=== PATIENT | female | born 1960 | race Caucasian/White ===

== ENCOUNTER → 2018-01-17 | Outpatient (CLI) | payer BC ==
--- NOTE | 2018-01-17 09:55 | WOMENS IMAGING REPORT ---
EXAM DESCRIPTION: BILAT SCREENING MAMMO W/CAD COMPLETED DATE/TIME: 01/17/2018 9:09 am REASON FOR STUDY: SCREENING MAMMO Z12.31 ENCNTR SCREEN MAMMOGRAM FOR MALIGNANT NEOPLASM OF LISA COMPARISON: 2009 TECHNIQUE: Standard craniocaudal and mediolateral oblique views of each breast recorded using digita l acquisition. LIMITATIONS: None. FINDINGS: No masses, calcifications or architectural distortion. No areas of suspicion. Read with the assistance of CAD. .[facility] - R2 Cenova Version 1.3 .[facility] Imaging - R2 Cenova Version 1.3 .[facility] - R2 Cenova Version 2.4 .[facility] [place] Cenova Version 2.4 .[facility] - R2 Liner Roll Changer Version 9.2 IMPRESSION: NORMAL MAMMOGRAM. BIRADS 1. BREAST DENSITY: b. There are scattered areas of fibroglandular density. BIRAD: 1 NEGATIVE RECOMMENDATION: ROUTINE SCREENING COMMENT: The patient has been notified of the results by letter per SA requirements. Additional no tification policies are in place for contacting patient with suspicious or incomplete findings. Quality ID #[id number]: The [employer] recommends an annual screening mammogram for women aged 40 years or over. This facility utilizes a reminder system to ensure that all patients receive reminder letters, and/or direct phone calls for appointments. This includes reminders for routine scr eening mammograms, diagnostic mammograms, or other Breast Imaging Interventions when appropriate. Th is patient will be placed in the appropriate reminder system. The [employer] (ACR) has developed recommendations for screening MRI of the breast s in certain patient populations, to be used in conjunction with mammography. Breast MRI surveillanc e may be appropriate for women with more than 20% lifetime risk of developing breast cancer as deter mined by genetic testing, significant family history of the disease, or history of mantle radiation f or Hodgkins Disease. ACR Practice Guidelines 2008. TECHNICAL DOCUMENTATION: FINDING NUMBER: (1) ASSESSMENT: (1) JOB ID: [id number] [employer]- All Rights Reserved
== END ==
LOC: WI 08:50
PROVIDERS: ATTEND Physician Assistant
DX: Z12.31 Encounter for screening mammogram for malignant neoplasm of breast (principal)
CPT/HCPCS: 77067

== ENCOUNTER 2019-08-05 05:42 | Emergency (ER) | payer OTHER, BC ==
[2019-08-05] MEDS ORDERED: IBUPROFEN 600 MG TABLET PO ONE (06:04)
--- NOTE | 2019-08-05 06:09 | ER Document Report ---
HPI - HPI Time Seen by Provider: 08/05/19 06:00 Pain Level: 5 Context: Patient is a 59-year-old female that comes to the emergency department for chief complaint of left ankle injury. She states she was at work when she got her foot caught in a metal stirrup causing her to twist the ankle. She states she inverted the ankle and heard a pop, almost immediately after the area started swelling and she had difficulty walking on it. She denies falling or any other injuries. She denies any diagnosed medical problems or daily medications. She denies any other complaints. - REPRODUCTIVE Reproductive: DENIES: : Past Medical History - General Information source: Patient - Social History Smoking Status: Never Smoker Drug Abuse: None Lives with: Family Family History: Reviewed & Not Pertinent Surgical Hx: Negative - Immunizations Hx Diphtheria, Pertussis, Tetanus Vaccination: Yes - needs updating today on 02/15/2015 Vertical Provider Document - CONSTITUTIONAL General Appearance: WD/WN, No Apparent Distress - INFECTION CONTROL TRAVEL OUTSIDE OF THE [place] IN LAST 30 DAYS: No - HEENT HEENT: Atraumatic, Normal ENT Exam, Normocephalic - NECK Neck: Normal Inspection - RESPIRATORY Respiratory: Breath Sounds Normal, No Respiratory Distress - CARDIOVASCULAR Cardiovascular: Regular Rate, Regular Rhythm - GI/ABDOMEN Gastrointestinal: Abdomen Soft, Abdomen Non-Tender - BACK Back: Normal Inspection - MUSCULOSKELETAL/EXTREMETIES Musculoskeletal/Extremeties: MAEW, FROM, Tender - Soft tissue swelling over the dorsal left foot at the base of the ankle and over the side of the foot near the lateral malleolus. The area is tender. Pain with moving the ankle as well. Pain with weightbearing. Capillary refill and sensation intact. Normal leg, knee, hip exam. Normal extremities otherwise. - NEURO Level of Consciousness: Awake, Alert, Appropriate - DERM Integumentary: Warm, Dry, No Rash Course - Re-evaluation Re-evalutation: X-ray showing fracture which is nondisplaced at the base of the left fifth metatarsal. No other injuries noted by exam, this is consistent with patient's physical exam and injury. Discussed with patient, discussed splint use, importance of orthopedics referral, medications, return precautions. Patient states understanding and agreement. - Vital Signs Vital signs: Temp Pulse Resp BP Pulse Ox 97.5 F 85 16 128/86 H 98 08/05/19 05:46 08/05/19 05:46 08/05/19 05:46 08/05/19 05:46 08/05/19 05:46 Procedures - Immobilization Left foot/ankle Pre-Proc Neuro Vasc Exam: Normal Immobilizer type: Posterior ankle Performed by: PCT Post-Proc Neuro Vasc Exam: Normal Alignment checked and good: Yes Discharge - Discharge Clinical Impression: Fracture of 5th metatarsal Qualifiers: Encounter type: initial encounter Fracture type: closed Fracture alignment: nondisplaced Laterality: left Qualified Code(s): S92.355A - Nondisplaced fracture of fifth metatarsal bone, left foot, initial encounter for closed fracture Condition: Stable Disposition: HOME, SELF-CARE Additional Instructions: You have a fracture at the base of the bone in your foot called the metatarsal (this attaches to your little toe). Please wear the splint, using crutches, call the orthopedic referral listed today to set up close follow-up and additional management. Take the provided pain medication if needed, I also recommend you take the provided stool softener to avoid constipation while taking this. Return for any concerning symptoms including severe swelling or pain. Prescriptions: Docusate Sodium [Colace 100 mg Capsule] 100 mg PO ASDIR PRN #30 capsule PRN Reason: Morphine Sulfate [Morphine Ir 15 Mg Tablet] 15 mg PO TID PRN #15 tablet PRN Reason: Forms: Return to Work Referrals: RENA ORTEGA MD [ACTIVE STAFF] - Follow up tomorrow
--- NOTE | 2019-08-05 06:46 | RADIOLOGY REPORT (SQ) ---
Left foot three view and left ankle three view on 08/05/2019 CLINICAL INDICATION: Left ankle and foot pain after fall, felt a pop COMPARISON: None FINDINGS: Left foot: There is an acute, transverse, mildly distracted fracture of the base of the fifth metatarsal. No other fracture is noted. Small plantar calcaneal spur is noted. Visualized joints are well aligned. No other bony abnormality is noted. Left ankle: The ankle mortise is intact. The acute transverse fracture of the base of the fifth metatarsal is again noted. Small plantar calcaneal spur is noted. No other fracture is noted. Visualized joints are well aligned. IMPRESSION: Acute transverse fracture of the base of the fifth metatarsal as above with no other acute abnormality in the left foot or left ankle.
[2019-08-05] MEDS ORDERED: HYDROCODONE/ACETAMINOPHEN 5-325 MG (6 TAB/ER DISP) PO PRN (07:02)
[2019-08-05 07:31] VITALS: BP 146/76
== END 2019-08-05 07:35 | disposition home or self-care (01) ==
LOC: ER 05:42
DX: S92.355A Nondisplaced fracture of fifth metatarsal bone, left foot, initial encounter for closed fracture (principal); X50.0XXA Overexertion from strenuous movement or load, initial encounter; Y99.0 Civilian activity done for income or pay
CPT/HCPCS: 99283

== ENCOUNTER 2019-09-16 09:02 | Day surgery (SDC) | payer OTHER, BC ==
[2019-09-14 10:36] LABS: HEMATOCRIT 39.5 % (36.0-47.0); HEMOGLOBIN 13.2 g/dL (12.0-15.5); MEAN CORPUSCULAR HEMOGLOBIN 29.3 pg (27.0-33.4); MEAN CORPUSCULAR HGB CONC 33.5 g/dL (32.0-36.0); MEAN CORPUSCULAR VOLUME 88 fl (80-97); PLATELET COUNT 240 10^3/uL (150-450); RED BLOOD COUNT 4.51 10^6/uL (3.72-5.28); RED CELL DISTRIBUTION WIDTH 13.6 % (11.5-14.0); WHITE BLOOD COUNT 6.9 10^3/uL (4.0-10.5)
--- NOTE | 2019-09-14 10:44 | RADIOLOGY REPORT (SQ) ---
EXAM DESCRIPTION: CHEST PA/LATERAL COMPLETED DATE/TIME: 09/14/2019 10:09 am REASON FOR STUDY: PRE-OP COMPARISON: 07/18/2015. EXAM PARAMETERS: NUMBER OF VIEWS: two views TECHNIQUE: Digital Frontal and Lateral radiographic views of the chest acquired. RADIATION DOSE: NA LIMITATIONS: none FINDINGS: LUNGS AND PLEURA: No opacities, masses or pneumothorax. No pleural effusion. MEDIASTINUM AND HILAR STRUCTURES: No masses or contour abnormalities. HEART AND VASCULAR STRUCTURES: Heart normal size. No evidence for failure. BONES: No acute findings. HARDWARE: None in the chest. OTHER: No other significant finding. IMPRESSION: NO SIGNIFICANT RADIOGRAPHIC FINDING IN THE CHEST. TECHNICAL DOCUMENTATION: JOB ID: [id number] [employer]- All Rights Reserved Reading location - IP/workstation name: [email or web address]
[2019-09-14 10:49] LABS: APPEARANCE,URINE CLEAR; BILIRUBIN,URINE NEGATIVE (NEGATIVE); COLOR,URINE YELLOW; GLUCOSE, URINE NEGATIVE (NEGATIVE); KETONES,URINE NEGATIVE (NEGATIVE); LEUKOCYTE ESTERASE,URINE NEGATIVE (NEGATIVE); NITRITE,URINE NEGATIVE (NEGATIVE); PROTEIN,URINE NEGATIVE (NEGATIVE); URINE SPECIFIC GRAVITY 1.013; UROBILINOGEN,URINE NEGATIVE mg/dL (<2.0)
[2019-09-14 11:02] LABS: ANION GAP 9 (5-19); BLOOD UREA NITROGEN 15 mg/dL (7-20); CALCIUM 9.8 mg/dL (8.4-10.2); CARBON DIOXIDE 27 mmol/L (22-30); CHLORIDE 105 mmol/L (98-107); GLUCOSE 99 mg/dL (75-110); POTASSIUM 4.7 mmol/L (3.6-5.0)
[2019-09-15 13:53] LABS: ABSOLUTE LYMPHOCYTES# (MANUAL) 1.9 10^3/uL (0.5-4.7); ABSOLUTE MONOCYTES # (MANUAL) 0.3 10^3/uL (0.1-1.4); BASOPHILS % (MANUAL) 0 % (0-2); EOSINOPHILS % (MANUAL) 2 % (0-6); LYMPHOCYTES % (MANUAL) 27 % (13-45); MONOCYTES % (MANUAL) 4 % (3-13); OVALOCYTES SLIGHT; PLATELET COMMENT ADEQUATE; POIKILOCYTOSIS SLIGHT; SEGMENTED NEUTROPHILS % (MAN) 67 % (42-78); TOTAL CELLS COUNTED 100
--- NOTE | 2019-09-15 21:37 | EKG REPORT ---
SEVERITY:- NORMAL ECG - SINUS RHYTHM : Confirmed by: Alex Lopez 15-Sep-2019 21:37:04
[~2019-09-16 09:02] MED LIST: CEFAZOLIN SODIUM 2 GM in DEXTROSE 5%-WATER 100 ML IV PRN; LACTATED RINGERS 1000 ML IV PRN; LIDOCAINE 0.5% INJ-PF (5 MG/ML) 50 ML SDV SUBCUT PRN
[2019-09-16] MEDS ORDERED: LIDOCAINE 2% INJ-PF (20 MG/ML) 10 ML AMPUL ONE (10:38)
[2019-09-16] MEDS ORDERED: FENTANYL CITRATE INJ/PF 100 MCG/2 ML AMPUL ONE ×2 (10:38→11:55)
[2019-09-16] MEDS ORDERED: PROPOFOL INJ 200 MG/20 ML VIAL IV ONE (10:38)
[2019-09-16] MEDS ORDERED: MIDAZOLAM 2 MG/2 ML INJ ONE (10:38)
[2019-09-16] MEDS ORDERED: ONDANSETRON HCL INJ/PF 4 MG/2 ML SDV ONE (10:45)
[2019-09-16] MEDS ORDERED: DEXAMETHASONE SOD PHOSPHATE INJ 4 MG/1 ML VIAL ONE (10:45)
[2019-09-16] MEDS ORDERED: BUPIVACAINE HCL 0.5%-EPI 1:200000 INJ/PF 30 ML VIAL ONE (11:00)
[2019-09-16] MEDS ORDERED: MEPERIDINE HCL/PF INJ 25 MG/1 ML DISP.SYRIN IV PRN (11:08)
[2019-09-16] MEDS ORDERED: FENTANYL CITRATE INJ/PF 100 MCG/2 ML AMPUL IV PRN ×2 (11:08)
[2019-09-16] MEDS ORDERED: OXYCODONE-ACETAMINOPHEN 5-325 MG TABLET PO PRN ×2 (11:08)
[2019-09-16] MEDS ORDERED: DIPHENHYDRAMINE HCL 50 MG/ML VIAL IV PRN (11:08)
[2019-09-16] MEDS ORDERED: ONDANSETRON HCL INJ/PF 4 MG/2 ML SDV IV PRN (11:08)
[2019-09-16] MEDS ORDERED: PROMETHAZINE HCL INJ 25 MG/1 ML VIAL IV PRN ×2 (11:08)
--- NOTE | 2019-09-16 11:32 | Discharge Summary ---
Discharge Summary (SDC) - Discharge Final Diagnosis: Nonunion left fifth metatarsal fracture Date of Surgery: 09/16/19 Discharge Date: 09/16/19 Condition: Good Treatment or Instructions: Weightbearing as tolerated ambulation in the cam walker Prescriptions: Oxycodone HCl/Acetaminophen [Percocet 5-325 mg Tablet] 1 tab PO Q6 PRN #24 tablet PRN Reason: Referrals: CARMLEO AMAYA MD [Primary Care Provider] - Discharge Diet: Regular Respiratory Treatments at Home: Deep Breathing/Coughing Discharge Activity: Balance Activity w/Rest, No tub bath Report the Following to Your Physician Immediately: Shortness of Breath, Fever over 101 Degrees, Drainage-Foul Smelling
--- NOTE | 2019-09-16 11:33 | Operative Report ---
Operative Report DATE OF SURGERY: 09/16/19 PREOPERATIVE DIAGNOSIS: Left fifth metatarsal proximal nonunion OPERATION: Open reduction internal fixation left fifth metatarsal fracture SURGEON: RENA ORTEGA ANESTHESIA: GA ESTIMATED BLOOD LOSS: Minimal PROCEDURE: With the patient supine on the operative table left lower extremities prepped and draped in sterile fashion. A small bone hook was then used to perform a closed reduction of the first metatarsal fracture and subsequently a pin from the brettapproved 3.5 mm headless cannulated screws is advanced through the proximal fragment into the metadiaphysis of the fifth metatarsal. Subsequently a 26 mm headless screw was advanced over the guide jodi to an appropriate depth. The fracture reduction and hardware placement checked in 3 planes using fluoroscopy and felt to be adequate. The pin is removed. The wound is irrigated. A drop of Dermabond cement is placed over the stab wound. A compressive dressing was placed in the patient's return to the PACU in satisfactory condition.
[2019-09-16] MEDS: FENTANYL CITRATE INJ/PF 100 MCG/2 ML AMPUL IV PRN ×2 (11:58→12:10)
[2019-09-16] MEDS ORDERED: ACETAMINOPHEN 1,000 MG/100 ML RTUPB IV ONE (12:27)
[2019-09-16 14:50] VITALS: BP 121/74
--- NOTE | 2019-09-16 16:13 | RADIOLOGY REPORT (SQ) ---
EXAM DESCRIPTION: FOOT LEFT 2 VIEWS; NO CHG FLUORO COMPLETED DATE/TIME: 09/16/2019 11:54 am REASON FOR STUDY: ORIF LEFT 5TH METATARSAL S92.355A NONDISP FX OF FIFTH METATARSAL BONE, LEFT FOOT, INI COMPARISON: 08/05/2019. FLUOROSCOPY TIME: 0.32 minutes. 6 images saved to PACS. TECHNIQUE: Intra-operative images acquired during surgical procedure to evaluate progress. NUMBER OF IMAGES: 6 images. LIMITATIONS: None. FINDINGS: Images of the foot acquired during the procedure. IMPRESSION: IMAGE(S) OBTAINED DURING PROCEDURE. COMMENT: Quality ID [id number]: Final reports for procedures using fluoroscopy that document radiation exp osure indices, or exposure time and number of fluorographic images (if radiation exposure indices are not available) Please consult full operative report of the attending physician for description of the procedure. TECHNICAL DOCUMENTATION: JOB ID: [id number] [employer]- All Rights Reserved Reading location - IP/workstation name: [email or web address]
--- NOTE | 2019-09-16 16:13 | RADIOLOGY REPORT (SQ) ---
EXAM DESCRIPTION: FOOT LEFT 2 VIEWS; NO CHG FLUORO COMPLETED DATE/TIME: 09/16/2019 11:54 am REASON FOR STUDY: ORIF LEFT 5TH METATARSAL S92.355A NONDISP FX OF FIFTH METATARSAL BONE, LEFT FOOT, INI COMPARISON: 08/05/2019. FLUOROSCOPY TIME: 0.32 minutes. 6 images saved to PACS. TECHNIQUE: Intra-operative images acquired during surgical procedure to evaluate progress. NUMBER OF IMAGES: 6 images. LIMITATIONS: None. FINDINGS: Images of the foot acquired during the procedure. IMPRESSION: IMAGE(S) OBTAINED DURING PROCEDURE. COMMENT: Quality ID [id number]: Final reports for procedures using fluoroscopy that document radiation exp osure indices, or exposure time and number of fluorographic images (if radiation exposure indices are not available) Please consult full operative report of the attending physician for description of the procedure. TECHNICAL DOCUMENTATION: JOB ID: [id number] [employer]- All Rights Reserved Reading location - IP/workstation name: [email or web address]
== END 2019-09-16 13:50 | disposition home or self-care (01) ==
LOC: OROUT 09:02 → EDSTATUS 11:00 → OROUT 13:50
PROVIDERS: ATTEND Orthopaedic Surgery
DX: S92.355A Nondisplaced fracture of fifth metatarsal bone, left foot, initial encounter for closed fracture (principal); W19.XXXA Unspecified fall, initial encounter; M79.672 Pain in left foot
CPT/HCPCS: 93005; 36415; 85025; 80048; 81001; 71046; 73620; 93010; 01480; 28485; C1713; J2250; J3490 ×2; J0690; J1100; J3010; J2405; J7060; J2704; J0131; 85027

== ENCOUNTER 2020-08-01 23:07 | Emergency (ER) | payer OTHER, BC ==
[2020-08-02] MEDS ORDERED: ACETAMINOPHEN 325 MG TABLET PO ONE (00:41)
--- NOTE | 2020-08-02 01:25 | RADIOLOGY REPORT (SQ) ---
CLINICAL HISTORY: bone pain COMPARISON: None. TECHNIQUE: XR ANKLE 3 OR MORE VIEWS 08/02/2020 12:00 AM CDT FINDINGS: There is an age-indeterminate fracture of the medial malleolus. Joint spaces are preserved. There is mild lateral soft tissue swelling. There is a small calcaneal spur. IMPRESSION: Lateral soft tissue swelling with an age-indeterminate medial malleolus fracture.
[2020-08-02] MEDS ORDERED: OXYCODONE HCL IR 5 MG TABLET PO ONE (05:02)
[2020-08-02] MEDS ORDERED: DIPH/PERTUSS(ACELL)/TETANUS VAC/PF 0.5 ML SYR (>=10YO) IM ONE (05:10)
--- NOTE | 2020-08-02 05:17 | ER Document Report ---
ED General - General Chief Complaint: Ankle Injury Stated Complaint: POSSIBLE ANKLE INJURY Time Seen by Provider: 08/02/20 04:49 Primary Care Provider: CARMELO AMAYA MD [Primary Care Provider] - Follow up as needed RENA ORTEGA MD [ACTIVE STAFF] - Follow up as needed TRAVEL OUTSIDE OF THE [place] IN LAST 30 DAYS: No - HPI Notes: Patient is a 60-year-old female who presents to the emergency department for evaluation of right ankle pain. She states she was walking, twisted her ankle on a stone. She describes an inversion injury. She states she scraped her left knee. She denies hitting her head. She denies any neck or back pain. She states her pain is currently an 8 out of 10. Is made worse by bearing weight. She states is primarily painful on the lateral aspect of the ankle, but it does hurt on the medial aspect of the ankle. She denies any foot pain. - Related Data Allergies/Adverse Reactions: No Known Allergies Allergy (Verified 08/05/19 06:19) Home Medications: asa 81 mg Past Medical History - General Information source: Patient - Social History Smoking Status: Never Smoker Family History: Reviewed & Not Pertinent, DM - Past Medical History Cardiac Medical History: Denies: Hx Coronary Artery Disease, Hx Heart Attack, Hx Hypertension Pulmonary Medical History: Denies: Hx Asthma, Hx Bronchitis, Hx COPD, Hx Pneumonia Neurological Medical History: Denies: Hx Cerebrovascular Accident, Hx Seizures Renal/ Medical History: Denies: Hx Peritoneal Dialysis Musculoskeletal Medical History: Denies Hx Arthritis Past Surgical History: Reports: Hx Orthopedic Surgery - Immunizations Hx Diphtheria, Pertussis, Tetanus Vaccination: Yes Review of Systems - Review of Systems Constitutional: No symptoms reported EENT: No symptoms reported Cardiovascular: No symptoms reported Respiratory: No symptoms reported Gastrointestinal: No symptoms reported Genitourinary: No symptoms reported Musculoskeletal: See HPI Skin: See HPI Neurological/Psychological: No symptoms reported Physical Exam - Vital signs Vitals: Temp Pulse Resp BP Pulse Ox 97.8 F 65 18 120/68 99 08/01/20 23:54 08/01/20 23:54 08/01/20 23:54 08/01/20 23:54 08/01/20 23:54 - Notes Notes: This is a very pleasant 60-year-old female who appears her stated age, in no acute distress. Heart is regular rate and rhythm, lungs are clear to auscultation bilaterally. Examination of the extremities yields a superficial abrasion overlying the tibial plateau on the left knee. She has a superficial abrasion in the mid herrera on the right. Examination of the right ankle yields a moderate amount of edema over the lateral malleolus with some ecchymosis noted. She has tenderness there, as well as over the distal medial malleolus. No fifth metatarsal head tenderness. No fibular head tenderness. Neurovascularly intact distally. Course - Re-evaluation Re-evalutation: 08/02/20 05:15 Patient presents to the emergency department for evaluation. She had x-ray of the right ankle. X-ray of the right ankle showed an indeterminate aged fracture on the medial malleolus. The patient does have some tenderness there. She cannot recall any injury of this area in the past, but I would be inclined to treat this is an acute fracture until ruled out by orthopedist. This was explained to the patient and she voiced understanding. Her tetanus was updated. She was given oxycodone here for her pain. Otherwise she is to take anti- inflammatories. She is placed in a posterior splint, given crutches and instructions on crutch use. She has seen Dr. Ortega in the past, will contact him for evaluation. 08/02/20 05:48 Patient examined after splint in place. Neurovascularly intact. - Vital Signs Vital signs: Temp Pulse Resp BP Pulse Ox 97.8 F 65 18 120/68 99 08/01/20 23:54 08/01/20 23:54 08/01/20 23:54 08/01/20 23:54 08/01/20 23:54 - Diagnostic Test Radiology reviewed: Image reviewed, Reports reviewed Radiology results interpreted by me: 08/02/20 05:48 Ankle X-Ray 08/02/20 00:00 IMPRESSION: Lateral soft tissue swelling with an age-indeterminate medial malleolus fracture. Discharge - Discharge Clinical Impression: Right ankle sprain Qualifiers: Encounter type: initial encounter Involved ligament of ankle: unspecified ligament Qualified Code(s): S93.401A - Sprain of unspecified ligament of right ankle, initial encounter Closed right ankle fracture Qualifiers: Encounter type: initial encounter Qualified Code(s): S82.891A - Other fracture of right lower leg, initial encounter for closed fracture Condition: Stable Disposition: HOME, SELF-CARE Instructions: Use of Crutches ([facility]), Splint Precautions ([facility]) Additional Instructions: As discussed, there was a small fracture noted on your distal tibia. It is unclear at this time as to whether or not this is an acute fracture. Please note this is being treated as an acute fracture. You should follow-up with Dr. Ortega, your orthopedic surgeon. Tylenol or ibuprofen as needed for pain. No weightbearing. If you develop worsening or new concerning symptoms of any sort, please return immediately to the emergency department for reevaluation. Referrals: CARMELO AMAYA MD [Primary Care Provider] - Follow up as needed RENA ORTEGA MD [ACTIVE STAFF] - Follow up as needed
[2020-08-02 06:00] VITALS: BP 140/67
== END 2020-08-02 05:55 | disposition home or self-care (01) ==
LOC: ER 23:07
DX: S82.51XA Displaced fracture of medial malleolus of right tibia, initial encounter for closed fracture (principal); X50.0XXA Overexertion from strenuous movement or load, initial encounter; S80.212A Abrasion, left knee, initial encounter; S80.811A Abrasion, right lower leg, initial encounter; X58.XXXA Exposure to other specified factors, initial encounter; Z79.82 Long term (current) use of aspirin; Z23 Encounter for immunization
CPT/HCPCS: 90471; 90715; 99283

== ENCOUNTER → 2020-12-23 | Outpatient (CLI) | payer OTHER, BC ==
[~2020-12-23] MED LIST changes: -CEFAZOLIN SODIUM 2 GM in DEXTROSE 5%-WATER 100 ML IV PRN; +COVID-19 VACCINE (PFIZER)/PF 30 MCG/0.3 ML VIAL IM ONE; +EPINEPHRINE INJ/PF 1 MG/1 ML AMPULE IM PRN; -LACTATED RINGERS 1000 ML IV PRN; -LIDOCAINE 0.5% INJ-PF (5 MG/ML) 50 ML SDV SUBCUT PRN
== END ==
LOC: EMPHEALTH 10:54
PROVIDERS: ATTEND Internal Medicine
DX: Z23 Encounter for immunization (principal)
CPT/HCPCS: 91300